=== PATIENT | male | born 1970 | race Caucasian/White ===

== ENCOUNTER 2022-05-24 20:54 | Emergency (ER) | payer OTHER, SELFPAY ==
[2022-05-24 21:04] VITALS: BP 148/96; PULSE 85; RESP 16; TEMP 36.7; O2SAT 96; BMI 32.5
--- NOTE | 2022-05-28 06:06 | ED_ITS ---
HPI - Extremity Injury (Lower) General Chief Complaint: Extremity Pain/Injury, Lower Stated Complaint: pain in rt foot. Time Seen by Provider: 05/24/22 21:09 History of Present Illness HPI Narrative: 52-year-old man presenting to the emergency department with complaint of right ankle pain. 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 Passing through. Was working securing his load when he slipped on some ice falling onto his left shoulder in the process which he thinks is okay but it is his right ankle in particular this causing him pain. There is also pain in his left shoulder. Did not hit his head. No back pain otherwise. I believe he is describing an inversion injury of the ankle. He wears blunt-toed cowboy boots. Has been able to ambulate. Related Data Home Medications Medication Instructions Recorded Confirmed No Known Home Medications 05/24/22 05/24/22 Allergies Allergy/AdvReac Type Severity Reaction Status Date / Time No Known Drug Allergies Allergy Verified 05/24/22 21:07 Review of Systems Status of ROS: Reports: 6 or more systems reviewed and unremarkable except as noted in History and below [facility] Medical History No significant past medical history Surgical History (Updated 05/24/22 @ 21:30 by Torrie Cates RN) No significant past surgical history Social History Smoking Status: Never smoker Do you use any of these nicotine containing products: None How often do you have a drink containing alcohol: never AUDIT-C Alcohol total score: 0 Non-prescribed substance use: denies use Exam Narrative: Exam Narrative: Pleasant. Larger man. NAD. Ambulating with a slightly antalgic gait favoring the right. Skin is warm and dry. Head is atraumatic. He is breathing easily. Demonstrating a little soreness with movement of the left shoulder. Elbow looks to be okay. Most soreness elicited though without significant weakness, to empty can testing and resisted external rotation. Generally though with good strength in all movements. Sore also with Neer's but not markedly so. Do not appreciate any swelling about the shoulder. AC joint is not tender. Sore to palpation directly over the supraspinatus as well. Mild rhomboid area pain. No scapular pain. Examination of the ankle shows mild swelling about the lateral malleolus. He is not tender over the posterior aspects of either malleoli. No navicular tenderness no base of 5th metatarsal tenderness. No instability medial or lateral stressors nor to drawer testing. Most tenderness is elicited to distal aspect in the soft tissues of the lateral malleolus and then continuing anteriorly is quite tender. Soft swelling here. Const: Documenting provider has reviewed patient's vital signs: yes Course Vital Signs Vital signs: Initial Vital Signs Temperature 98.1 F 05/24/22 21:04 Temperature Source Temporal Artery Scan 05/24/22 21:04 Pulse Rate 85 05/24/22 21:04 Respiratory Rate 16 05/24/22 21:04 Blood Pressure 148/96 H 05/24/22 21:04 Blood Pressure Mean 113 05/24/22 21:04 Blood Pressure Position Sitting 05/24/22 21:04 Pulse Oximetry 96 05/24/22 21:04 Oxygen Delivery Method 05/24/22 21:04 Vital Signs Temperature 98.1 F 05/24/22 21:04 Pulse Rate 85 05/24/22 21:04 Respiratory Rate 16 05/24/22 21:04 Blood Pressure 148/96 H 05/24/22 21:04 Pulse Oximetry 96 05/24/22 21:04 Oxygen Delivery Method 05/24/22 21:04 Temperature 98.1 F 05/24/22 21:04 Pulse Rate 85 05/24/22 21:04 Respiratory Rate 16 05/24/22 21:04 Blood Pressure 148/96 H 05/24/22 21:04 Pulse Oximetry 96 05/24/22 21:04 Oxygen Delivery Method 05/24/22 21:04 MDM - Extremity Injury (Lower) MDM Narrative Medical decision making narrative: Given ability to bear weight and his exam I think x-rays could be deferred. He is in agreement with this. Was given [place] wrap. Also an Aircast though this would be difficult to get in his boots. He does have other shoes with him on this trip that he thinks will be helpful. Discharge Plan Discharge Clinical Impression: Ankle sprain, Left shoulder strain Patient Disposition: Home, Self-Care Condition: Stable Additional Instructions: Can use this Aircast to encourage early mobility. Over the next 2-3 days though try to limit your ambulation. Can do exercises to keep things from stiffening up initially. Please see handout on ankle sprain. Follow-up in a week if not improved. Important to ice 2-3 times daily if possible over the next few days. Elevate as able. As far as the shoulder goes, see handout/exercises. I would also ice here to 3 times daily over the next few days if possible. I am concerned that you have a rotator cuff strain. For now can take up to 800 mg of ibuprofen or up to 1000 mg of acetaminophen per dose. Alternative to the ibuprofen, can take up to 500 mg of naproxen 2 times daily. Puede utilizar romain Aircast para fomentar la movilidad temprana. Dianna los pr?ximos 2-3 d?as, sin embargo, trate de limitar varner deambulaci?n. Puede hacer ejercicios para evitar que las cosas se endurezcan inicialmente. Por favor, jennifer el folleto sobre el esguince de tobillo. Seguimiento en joe semana si no mejora. Es importante congelar 2-3 veces al d?a si es posible dianna los pr?ximos d?as. Sandwich alyce puedas. En cuanto al hombro, jennifer folletos / ejercicios. Tambi?n congelar?a aqu? 3 veces al d?a dianna los pr?ximos d?as si es posible. Me preocupa que tenga joe distensi?n del manguito rotador. Por ahora puede fazal hasta 800 mg de ibuprofeno o hasta 1000 mg de paracetamol por dosis. Alternativa al ibuprofeno, puede fazal hasta 500 mg de naproxeno 2 veces al d?a. Prescriptions: No Action No Known Home Medications Stand Alone Forms: [employer] Info Instructions
== END 2022-05-24 22:13 | disposition home or self-care (01) ==
LOC: ED 22:06
PROVIDERS: Emergency Provider Family Medicine
DX: S93.402A Sprain of unspecified ligament of left ankle, initial encounter (principal); S46.912A Strain of unspecified muscle, fascia and tendon at shoulder and upper arm level, left arm, initial encounter; W00.0XXA Fall on same level due to ice and snow, initial encounter; Y93.89 Activity, other specified; Y92.9 Unspecified place or not applicable; Y99.0 Civilian activity done for income or pay
CPT/HCPCS: 99283